=== PATIENT | female | born 1965 | race Caucasian/White ===

== ENCOUNTER → 2023-10-09 09:47 | Outpatient (REF) | payer BC, SELFPAY | LOC: HWRCS 09:47 | PROVIDERS: ATTENDING PHYSICIAN Nurse Practitioner Adult Health; FAMILY PHYSICIAN Family Medicine | DX: R06.02 Shortness of breath (principal) | CPT/HCPCS: 93306 ==

== ENCOUNTER → 2023-11-04 11:39 | Outpatient (REF) | payer BC, SELFPAY | LOC: DHCBC/DCA 11:39 | PROVIDERS: ATTENDING PHYSICIAN Internal Medicine; FAMILY PHYSICIAN Family Medicine | DX: R07.89 Other chest pain (principal) | CPT/HCPCS: 78452; 93017; A9500; J2785 ==

== ENCOUNTER 2023-11-11 07:13 | Day surgery (SDC) | payer BC, SELFPAY ==
[2023-11-11] VITALS (13 sets, daily range): BP systolic 108–126; BP diastolic 58–80; BMI 20.7
[2023-11-11] MEDS: NSS 159 ML IV (07:43)
--- NOTE | 2023-11-11 09:24 | ITS.CL.CATH ---
Lab Analyst - Catheterization
Cardiac Catheterization
Procedure Report:
CARDIAC CATHETERIZATION REPORT
Date of Procedure: 11/11/2023
Referring: Girish Echevarria M.D.
INDICATION: Exertional chest pressure, abnormal stress test.
PROCEDURE:
1. Left heart catheterization.
2. Coronary angiography.
ACCESS:
6 [place] right radial artery using a modified Seldinger technique under ultrasound guidance.
CATHETERS:
1. 5 [place] JR4.
2. 5 [place] JL 3.5.
HEMODYNAMIC DATA
Weight (kg): 52.9
AO (s/d/x, mmHg): 96/60/72
LV (s/x mmHg): 96/5
LEFT VENTRICULOGRAPHY: Not performed.
CORONARY ANGIOGRAPHY
Dominance: Right.
Left Main: Normal size, bifurcating vessel. There is no coronary artery disease.
LAD: Normal size vessel giving rise to 1 significant diagonal. The diagonal immediately bifurcates into the medial and lateral branch. The medial branch of the diagonal parallels the LAD for the majority of its course. There is no coronary
artery disease. Of note, the medial branch of the diagonal gives rise to the master septal extrusion manager.
Ramus: Congenitally absent.
Circumflex: Normal size, nondominant vessel that is essentially a single obtuse marginal that bifurcates into an upper and lower branch. There is no coronary artery disease.
RCA: Large size, dominant vessel. The RPDA is a relatively small vessel supplying the proximal third of the inferior septum. The distal two thirds of the inferior septum are supplied by a septal branch from the acute marginal. There are minor
luminal irregularities in the proximal RCA.
INTERVENTION(S)
None.
Closure Device: Vascular band.
Radiation (mGy): 194.05
DAP (cm2.Gy): 17.0395
Fluoroscopy time (minutes): 1.8
Sedation time (minutes): 33
CONCLUSIONS
1. Right dominant circulation with minor luminal irregularities in the proximal RCA, a large diagonal with a medial branch that parallels the LAD and a master septal extrusion manager originating from the medial diagonal branch.
2. Normal filling pressures (LVEDP = 5 mmHg at 52.9 kg).
RECOMMENDATIONS:
1. Expectant management after cardiac catheterization via right radial approach.
2. Limited weight bearing on the right wrist for one week.
3. Stable for outpatient cardiology follow-up.
Copy to: Girish Echevarria M.D., Jose Moise M.D.
Jl Cabrera DO, FACC, FACP
[2023-11-11] MEDS: NSS 1000 IV (10:08)
== END 2023-11-11 13:00 | disposition home or self-care (01) ==
LOC: CATH 07:13
PROVIDERS: ATTENDING PHYSICIAN Internal Medicine Cardiovascular Disease; FAMILY PHYSICIAN Family Medicine; OTHER PHYSICIAN Internal Medicine
DX: R94.39 Abnormal result of other cardiovascular function study (principal); R07.89 Other chest pain
CPT/HCPCS: 93458; C1894; Q9967

== ENCOUNTER → 2023-11-18 09:55 | Outpatient (REF) | payer BC, SELFPAY | LOC: WDC 09:55 | PROVIDERS: ATTENDING PHYSICIAN Advanced Practice Midwife; FAMILY PHYSICIAN Family Medicine | DX: N63.21 Unspecified lump in the left breast, upper outer quadrant (principal) | CPT/HCPCS: 76642; 77061; 77065 ==

== ENCOUNTER → 2024-05-19 18:20 | Outpatient (REF) | payer BC, SELFPAY | LOC: WDC 18:20 | PROVIDERS: ATTENDING PHYSICIAN Advanced Practice Midwife; FAMILY PHYSICIAN Family Medicine | DX: Z12.31 Encounter for screening mammogram for malignant neoplasm of breast (principal) | CPT/HCPCS: 77063; 77067 ==

== ENCOUNTER → 2024-09-05 12:18 | Outpatient (REF) | payer BC, SELFPAY | LOC: RCS 12:18 | PROVIDERS: ATTENDING PHYSICIAN Pain Medicine Interventional Pain Medicine; FAMILY PHYSICIAN Family Medicine | DX: Z01.818 Encounter for other preprocedural examination (principal) | CPT/HCPCS: 93005 ==

== ENCOUNTER → 2025-08-05 08:55 | Outpatient (REF) | payer BC, SELFPAY | LOC: WDC 08:55 | PROVIDERS: ATTENDING PHYSICIAN Obstetrics & Gynecology; FAMILY PHYSICIAN Family Medicine | DX: Z12.31 Encounter for screening mammogram for malignant neoplasm of breast (principal) | CPT/HCPCS: 77063; 77067 ==